=== PATIENT | female | born 1945 | race Caucasian/White ===

== ENCOUNTER 2019-01-04 16:45 | Emergency (ER) | payer MEDICARE, BC ==
--- NOTE | 2019-01-04 18:01 | XR ---
EXAMINATION TYPE: XR chest 2V DATE OF EXAM: 01/04/2019 COMPARISON: NONE HISTORY: Altered mental status TECHNIQUE: Frontal and lateral views of the chest are obtained. FINDINGS: Heart appears enlarged. There is left-sided central venous catheter with tip in the superi or vena cava. There is no heart failure. Costophrenic angles are clear. Thoracic aorta is atheromatou s. IMPRESSION: Cardiomegaly. No acute lung disease.
--- NOTE | 2019-01-04 18:04 | ED ---
General Adult HPI - General Chief complaint: Weakness Stated complaint: poss TIA Time Seen by Provider: 01/04/19 16:59 Source: patient, family, EMS, RN notes reviewed Mode of arrival: EMS Limitations: altered mental status - History of Present Illness Initial comments: Patient is a pleasant 73-year-old female presenting to the emergency department with family with concerns for change in mental status. Onset of symptoms was prior to arrival. Episode lasted up to 15 minutes. Symptoms have resolved and patient feels normal at this time other than mild nausea. Patient did have one fall earlier today however states she just tripped. No injury. Patient was sitting on the couch prior to arrival. Daughter describes expressive and receptive aphasia. Patient had difficulty performing simple tasks and had a near fall off the couch. No injury. 911 was called. Daughter states patient appears normal again at this time. No history of similar symptoms previously. No headache. No chest or back pain. No abdominal pain. - Related Data Home Medications Medication Instructions Recorded Confirmed Apixaban [Eliquis] 2.5 mg PO BID 01/04/19 01/04/19 Biotin 5 mg PO DAILY 01/04/19 01/04/19 Carvedilol 12.5 mg PO BID 01/04/19 01/04/19 Cyanocobalamin (Vitamin B-12) 1,000 mcg PO DAILY 01/04/19 01/04/19 [Vitamin B-12] Escitalopram [Lexapro] 10 mg PO DAILY 01/04/19 01/04/19 Folic Acid 1 mg PO DAILY 01/04/19 01/04/19 Furosemide [Lasix] 40 mg PO DAILY 01/04/19 01/04/19 Gabapentin [Neurontin] 300 mg PO BID 01/04/19 01/04/19 Hydrocodone/Acetaminophen [[place] 1 tab PO Q6H PRN 01/04/19 01/04/19 10-325] Levothyroxine Sodium [Synthroid] 75 mcg PO DAILY 01/04/19 01/04/19 Omeprazole 40 mg PO BID 01/04/19 01/04/19 predniSONE 5 mg PO DAILY 01/04/19 01/04/19 Allergies Allergy/AdvReac Type Severity Reaction Status Date / Time erythromycin base AdvReac "SEVERE Verified 01/04/19 17:03 HEADACHE" Review of Systems ROS Statement: Those systems with pertinent positive or pertinent negative responses have been documented in the HPI. ROS Other: All systems not noted in ROS Statement are negative. Constitutional: Denies: fever Eyes: Denies: eye pain ENT: Denies: ear pain Respiratory: Denies: cough, dyspnea Cardiovascular: Denies: chest pain Endocrine: Denies: fatigue Gastrointestinal: Reports: nausea. Denies: abdominal pain Genitourinary: Denies: dysuria Musculoskeletal: Denies: back pain Skin: Denies: rash Neurological: Reports: as per HPI Past Medical History Past Medical History: Coronary Artery Disease (CAD), Cancer, COPD, Thyroid Disorder Additional Past Medical History / Comment(s): ovarian ca History of Any Multi-Drug Resistant Organisms: None Reported Past Surgical History: Cholecystectomy, Hysterectomy, Joint Replacement, Orthopedic Surgery Additional Past Surgical History / Comment(s): david knee,lt thumb,great rt toe, abd surgery to remove cancer Past Psychological History: No Psychological Hx Reported Smoking Status: Former smoker Past Alcohol Use History: None Reported Past Drug Use History: None Reported General Exam Limitations: altered mental status General appearance: alert, in no apparent distress Head exam: Present: atraumatic Eye exam: Present: normal appearance, PERRL, EOMI. Absent: nystagmus ENT exam: Present: normal oropharynx Neck exam: Present: normal inspection Respiratory exam: Present: normal lung sounds bilaterally Cardiovascular Exam: Present: regular rate, normal rhythm GI/Abdominal exam: Present: soft. Absent: tenderness Extremities exam: Present: normal inspection. Absent: pedal edema, calf tenderness Back exam: Present: normal inspection Neurological exam: Present: alert, oriented X3, CN II-XII intact. Absent: motor sensory deficit Expanded Neurological exam: Present: protecting the airway Speech: Present: fluid speech Cranial nerves: EOM's Intact: Normal, Facial Sensation: Normal Sensory exam: Upper Extremity Light Touch: Normal, Lower Extremity Light Touch: Normal Motor strength exam: RUE: 5, LUE: 5, RLE: 5, LLE: 5 Eye Response: (4) open spontaneously Motor Response: (6) obeys commands Verbal Response: (5) oriented Psychiatric exam: Present: normal affect, normal mood Skin exam: Present: normal color Course Vital Signs 01/04/19 01/04/19 17:15 17:45 Temperature 98.1 F Pulse Rate 73 72 Respiratory 20 22 Rate Blood Pressure 113/66 113/99 O2 Sat by Pulse 97 95 Oximetry EKG Findings - EKG Comments: EKG Findings:: Normal sinus rhythm 76. [place] 162. QRS 82. QT 426. QTc 479. Left axis. Normal QRS. Nonspecific T waves. Medical Decision Making - Medical Decision Making Patient reevaluated and resting comfortably in bed. Patient denies ever having chest discomfort several times. Patient and family updated on results and brigitte mmendations. Patient has clinical presentation of TIA. Cause of elevated troponin is unclear at this point. Neurology is unavailable at this time and therefore patient is recommended transfer. Family and patient request [facility]. [facility] was contacted however unable to accept transfer secondary to bed issues. Case was then discussed with [facility], including all results and troponin and radiology results and presentation including history and physical who will accept transfer. Following long discussion patient does admit that she has had some chest discomfort today however is unable to further describe it. Patient denies any discomfort at this time. Patient will need further evaluation for cardiac and possible aorta. Computed tomography scan with contrast will be limited at this time secondary to elevation of creatinine. This was discussed with patient and family and offer was made. There was warning of worsening renal function and possible need for dialysis in the future. There was also discussion made as far as benefit for evaluating aorta and potentially pulmonary embolism. Family is also made aware that we do have limited ability for managing any potential aorta problems. Decision between patient and family at this time is not to computed tomography scan and to have the transfer made an reevaluated at [facility]. Heparin will not be started at this time secondary to patient is currently on Eliquis. - Lab Data Result diagrams: 01/04/19 18:08 01/04/19 18:08 Lab Results 01/04/19 01/04/19 01/04/19 Range/Units 18:08 18:08 18:08 WBC 4.3 (3.8-10.6) k/uL RBC 2.48 L (3.80-5.40) m/uL Hgb 8.8 L (11.4-16.0) gm/dL Hct 24.6 L (34.0-46.0) % MCV 99.4 (80.0-100.0) fL MCH 35.4 H (25.0-35.0) pg MCHC 35.6 (31.0-37.0) g/dL RDW 16.6 H (11.5-15.5) % Plt Count 37 L (150-450) k/uL Neutrophils % 57 % Lymphocytes % 29 % Monocytes % 10 % Eosinophils % 1 % Basophils % 0 % Neutrophils # 2.4 (1.3-7.7) k/uL Lymphocytes # 1.2 (1.0-4.8) k/uL Monocytes # 0.4 (0-1.0) k/uL Eosinophils # 0.0 (0-0.7) k/uL Basophils # 0.0 (0-0.2) k/uL Anisocytosis Slight Macrocytosis Slight PT 10.2 (9.0-12.0) sec INR 1.0 (<1.2) APTT 19.7 L (22.0-30.0) sec Sodium 140 (137-145) mmol/L Potassium 3.9 (3.5-5.1) mmol/L Chloride 103 (98-107) mmol/L Carbon Dioxide 34 H (22-30) mmol/L Anion Gap 3 mmol/L BUN 23 H (7-17) mg/dL Creatinine 1.51 H (0.52-1.04) mg/dL Est GFR (CKD-EPI)AfAm 40 (>60 ml/min/1.73 sqM) Est GFR (CKD-EPI)NonAf 34 (>60 ml/min/1.73 sqM) Glucose 100 H (74-99) mg/dL Calcium 9.3 (8.4-10.2) mg/dL Ionized Calcium Christina 4.9 (4.5-5.3) mg/dL Phosphorus 3.2 (2.5-4.5) mg/dL Magnesium 1.7 (1.6-2.3) mg/dL Total Bilirubin 0.7 (0.2-1.3) mg/dL AST 44 H (14-36) U/L ALT 17 (9-52) U/L Alkaline Phosphatase 75 (38-126) U/L Troponin I (0.000-0.034) ng/mL Total Protein 5.5 L (6.3-8.2) g/dL Albumin 3.4 L (3.5-5.0) g/dL 01/04/19 Range/Units 18:08 WBC (3.8-10.6) k/uL RBC (3.80-5.40) m/uL Hgb (11.4-16.0) gm/dL Hct (34.0-46.0) % MCV (80.0-100.0) fL MCH (25.0-35.0) pg MCHC (31.0-37.0) g/dL RDW (11.5-15.5) % Plt Count (150-450) k/uL Neutrophils % % Lymphocytes % % Monocytes % % Eosinophils % % Basophils % % Neutrophils # (1.3-7.7) k/uL Lymphocytes # (1.0-4.8) k/uL Monocytes # (0-1.0) k/uL Eosinophils # (0-0.7) k/uL Basophils # (0-0.2) k/uL Anisocytosis Macrocytosis PT (9.0-12.0) sec INR (<1.2) APTT (22.0-30.0) sec Sodium (137-145) mmol/L Potassium (3.5-5.1) mmol/L Chloride (98-107) mmol/L Carbon Dioxide (22-30) mmol/L Anion Gap mmol/L BUN (7-17) mg/dL Creatinine (0.52-1.04) mg/dL Est GFR (CKD-EPI)AfAm (>60 ml/min/1.73 sqM) Est GFR (CKD-EPI)NonAf (>60 ml/min/1.73 sqM) Glucose (74-99) mg/dL Calcium (8.4-10.2) mg/dL Ionized Calcium Christina (4.5-5.3) mg/dL Phosphorus (2.5-4.5) mg/dL Magnesium (1.6-2.3) mg/dL Total Bilirubin (0.2-1.3) mg/dL AST (14-36) U/L ALT (9-52) U/L Alkaline Phosphatase (38-126) U/L Troponin I 4.730 H* (0.000-0.034) ng/mL Total Protein (6.3-8.2) g/dL Albumin (3.5-5.0) g/dL - Radiology Data Radiology results: report reviewed (Computed tomography scan of the brain without contrast reveals no acute process. Atrophy.), image reviewed (Two-view chest x-ray shows cardiomegaly. Left-sided venous catheter in place. Thoracic aorta is atheromatous.) Disposition Clinical Impression: TIA (transient ischemic attack), Elevated troponin Disposition: OTHER INSTITUTION NOT DEFINED Condition: Serious Is patient prescribed a controlled substance at d/c from ED?: No Referrals: Ayaz Mera DO [Primary Care Provider] - 1-2 days Time of Disposition: 20:01 - Out of Hospital Transfer - Req. Specs Out of Hospital Transfer - Requested Specifics: Other Emergency Center
--- NOTE | 2019-01-04 18:06 | CT ---
EXAMINATION TYPE: CT brain wo con DATE OF EXAM: 01/04/2019 COMPARISON: None HISTORY: Dizziness and headache CT DLP: 1201.4 mGycm Automated exposure control for dose reduction was used. FINDINGS: There is mild cerebral atrophy. There is no mass effect nor midline shift. There is no sign of intrac ranial hemorrhage. The calvarium is intact. IMPRESSION: MILD ATROPHY. NO ACUTE INTRACRANIAL ABNORMALITY.
[2019-01-04 18:27] LABS: Ionized Calcium 4.9 mg/dL (4.5-5.3)
[2019-01-04 18:29] LABS: Anisocytosis Slight; Basophils % (A) 0 %; Eosinophils % (A) 1 %; HCT 24.6 % (34.0-46.0); HGB 8.8 gm/dL (11.4-16.0); Lymphocytes # (A) 1.2 k/uL (1.0-4.8); Lymphocytes % (A) 29 %; MCH 35.4 pg (25.0-35.0); MCHC 35.6 g/dL (31.0-37.0); MCV 99.4 fL (80.0-100.0); Macrocytosis Slight; Mean Platelet Volume 10.2; Monocytes # (A) 0.4 k/uL (0-1.0); Monocytes % (A) 10 %; Neutrophils # (A) 2.4 k/uL (1.3-7.7); Neutrophils % (A) 57 %; RBC 2.48 m/uL (3.80-5.40); RDW 16.6 % (11.5-15.5); WBC 4.3 k/uL (3.8-10.6)
[2019-01-04 18:39] LABS: Albumin 3.4 g/dL (3.5-5.0); Calcium 9.3 mg/dL (8.4-10.2); Magnesium 1.7 mg/dL (1.6-2.3); Phosphorus 3.2 mg/dL (2.5-4.5); Potassium 3.9 mmol/L (3.5-5.1); Total Bilirubin 0.7 mg/dL (0.2-1.3); Total Protein 5.5 g/dL (6.3-8.2)
[2019-01-04 18:48] LABS: Prothrombin Time 10.2 sec (9.0-12.0)
[2019-01-04 18:58] LABS: Platelet Count 37 k/uL (150-450)
[2019-01-04 19:06] LABS: Partial Thromboplastin Time 19.7 sec (22.0-30.0)
[2019-01-04] MEDS ORDERED: ASPIRIN 81 MG PO STA (20:01)
[2019-01-04 20:24] VITALS: BP 125/54; PULSE 76; RESP 20; TEMP 98.3
[2019-01-05 07:32] LABS: Glucose,Whole Blood 113 mg/dL (75-99)
== END 2019-01-04 20:55 | disposition other institution (70) ==
LOC: EC 16:45
DX: G45.9 Transient cerebral ischemic attack, unspecified (principal); R79.89 Other specified abnormal findings of blood chemistry; R07.89 Other chest pain; R11.0 Nausea; I25.10 Atherosclerotic heart disease of native coronary artery without angina pectoris; E07.9 Disorder of thyroid, unspecified; Z85.43 Personal history of malignant neoplasm of ovary; Z96.653 Presence of artificial knee joint, bilateral; Z96.692 Finger-joint replacement of left hand; Z96.698 Presence of other orthopedic joint implants; Z87.891 Personal history of nicotine dependence; Z87.09 Personal history of other diseases of the respiratory system; Z79.01 Long term (current) use of anticoagulants; Z79.890 Hormone replacement therapy; Z79.52 Long term (current) use of systemic steroids; Z79.899 Other long term (current) drug therapy; Z88.1 Allergy status to other antibiotic agents
CPT/HCPCS: 36415; 70450; 71046; 80053; 82330; 83735; 84100; 84484; 85025; 85610; 85730; 93005; 99285